=== PATIENT | female | born 1985 ===

== ENCOUNTER 2024-11-29 06:46 | Day surgery (SDC) | payer OTHER ==
[2024-11-29] MEDS ORDERED: ONDANSETRON HCL 2 MG/ML VIAL IV ONE (08:15)
[2024-11-29] MEDS ORDERED: MIDAZOLAM HCL 2 MG/2 ML VIAL IV ONE (08:15)
[2024-11-29] MEDS ORDERED: fentaNYL CITRATE 50 MCG/ML AMPUL IV PUSH ONE (08:15)
[2024-11-29] MEDS ORDERED: DIPHENHYDRAMINE HCL 50 MG/ML VIAL 1ML IV ONE (08:15)
== END 2024-11-29 09:45 | disposition home or self-care (01) ==
LOC: AMB-ENDOS 06:46 → CIR.AMB 13:00
PROVIDERS: ATTEND Colon & Rectal Surgery
DX: K62.5 Hemorrhage of anus and rectum (principal); K62.89 Other specified diseases of anus and rectum; K64.8 Other hemorrhoids; Z88.5 Allergy status to narcotic agent